=== PATIENT | female | born 1975 | race Caucasian/White ===

== ENCOUNTER 2016-09-13 23:17 | Emergency (ER) | payer OTHER ==
[~2016-09-13] VITALS: Ht 175.3 cm; Wt 68.0 kg
[~2016-09-13 23:17] MED LIST: METO10TA PO; OXYC-360 PO; SULF-154 PO; Z.0.NO CURRENT MEDS
[2016-09-13 23:18] VITALS: BP 121/78; PULSE 69; RESP 14; TEMP 97.6; O2SAT 97
[2016-09-13] MEDS ORDERED: PROG100C PO (23:37)
--- NOTE | 2016-09-13 23:44 | PD ---
HPI Chief Complaint: Headache Time Seen by Provider: 23:38 Travel History International Travel<30 days: No Contact w/Intl Traveler<30days: No Traveled to known affect area: No History of Present Illness HPI 41-year-old white female presents to emergency department with complaints of headache. She states that for nearly a week now she's been having waxing and waning left temporal and behind eye pain. She states that she does not typically get headaches that last more than a day. She states that she's never had a CAT scan of her brain. She has not been ill recently. She has had no family history of headaches. She states that this headache came on gradually. She states it is sharp and stabbing. She has some tingling in her left cheek. Some associated nausea but no vomiting. No photophobia or phonophobia. She has had some temporary relief with [id number] NSAIDs. There is no aggravating activity. No family history of migraines. She denies any hypertension or diabetes. No active tissue disorders. 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 PENDING SALE TO [facility] Past Medical History Medical History: Denies Significant Hx Tetanus Vaccination: < 5 Years ?: Not LMP: yesterday Ectopic : Yes Past Surgical History Narrative Surgical Removal of an ovary Social History Alcohol Use: No Tobacco Use: No Substance Use: No Allergies-Medications (Allergen,Severity, Reaction): Coded Allergies: No Known Allergies (Verified , 09/13/16) Reported Meds & Prescriptions Reported Meds & Active Scripts Active Reported Progesterone Micronized 100 Mg Cap 100 Mg PO DAILY Review of Systems Except as stated in HPI: all other systems reviewed are Neg General / Constitutional: No: Fever, Chills Eyes: No: Diploplia, Blurred Vision, Photophobia, Drainage, Visual changes HENT: No: Headaches, Neck Stiffness, Neck Pain Cardiovascular: No: Chest Pain or Discomfort, Palpitations Respiratory: No: Cough, Shortness of Breath Gastrointestinal: Positive: Nausea, No: Vomiting Genitourinary: No: Dysuria, Hematuria Musculoskeletal: No: Myalgias, Arthralgias Skin: No Rash, No Itching Neurologic: Positive: Headache, No: Weakness, Dizziness, Syncope, Focal Abnormalities, Coordination Problem, Change in Mentation, Slurred Speech, Paresthesia, Sensory Disturbance Physical Exam Narrative GENERAL: Well-developed, well-nourished in no apparent distress. Nontoxic appearing. HEAD: Normocephalic, atraumatic. No pain on percussion. EYES: Pupils equal round and reactive. Extraocular motions intact. No scleral icterus. No injection or drainage. ENT: Nose clear. Throat without erythema, tonsillar hypertrophy or exudate. Uvula midline. Airway patent. NECK: Trachea midline. Supple, nontender, moves head freely. No central bony tenderness or spasm. CARDIOVASCULAR: Regular rate and rhythm without murmurs, gallops, or rubs. RESPIRATORY: Clear to auscultation. Breath sounds equal bilaterally. No wheezes , rales, or rhonchi. GASTROINTESTINAL: Abdomen soft, non-tender, nondistended. No hepato-splenomegaly , or palpable masses. No guarding. EXTREMITIES: No clubbing, cyanosis, or edema. No joint tenderness. BACK: Nontender without deformity. No flank tenderness. NEUROLOGICAL: Awake, alert and oriented x 3 .Cranial nerves grossly intact. Motor and sensory grossly within normal limits. Normal speech. Normal gait. Normal tandem gait. Normal finger to nose. Negative station and Romberg. Deep tendon reflexes are 3+ bilaterally. Data Data Last Documented VS Vital Signs Date Time Temp Pulse Resp B/P Pulse Ox O2 Delivery O2 Flow Rate FiO2 09/13/16 23:34 16 Room Air 09/13/16 23:18 97.6 69 121/[address] Brain W/O Iv Contrast(Rout) (09/13/16 23:36) Diphenhydramine Inj (Benadryl Inj) (09/13/16 23:45) Prochlorperazine Inj (Compazine Inj) (09/13/16 23:45) Ketorolac Inj (Toradol Inj) (09/13/16 23:45) Sodium Chlor 0.9% 1000 Ml Inj (Ns 1000 M (09/13/16 23:45) MDM Medical Decision Making Medical Screen Exam Complete: Yes Emergency Medical Condition: Yes Medical Record Reviewed: Yes Interpretation(s) CT brain: Unremarkable Differential Diagnosis MDM: High Differential diagnoses: Subarachnoid hemorrhage, intracranial bleed, aneurysm, pseudotumor, migraine, cluster headache, atypical migraine, temporal arteritis, connective tissue disorder, hypertension, temporal arteritis, sinusitis, sinus headache,malingering Narrative Course IV access is obtained. Patient's given 50 mg as of Benadryl, Compazine 10 mg, and Toradol 30 mg IV. Normal saline liter bolus CT of the brain has been ordered. The patient's headache is much improved. Her CAT scan is negative. This is cephalgia Diagnosis Primary Impression: Cephalgia Patient Instructions: General Instructions Additional Instructions: Rest. Increase fluids. Follow-up with your doctor on Friday. Return to the ER for problems. Disposition: DISCHARGE HOME Condition: Stable Margarito Cunningham Sep 13, 2016 23:44
[2016-09-13] MEDS ORDERED: KETOROLAC TROMETHAMINE 30 MG/ML (IVP) VIAL IV PUSH ONE (23:45)
[2016-09-13] MEDS ORDERED: SODIUM CHLOR 0.9% 1000 ML INJ 1,000 ML IV ONE (23:45)
[2016-09-13] MEDS ORDERED: PROCHLORPERAZINE INJ 10 MG/2 ML VIAL IVS ONE (23:45)
[2016-09-13] MEDS ORDERED: diphenhydrAMINE HCL 50 MG/ML VIAL IV PUSH ONE (23:45)
--- NOTE | 2016-09-14 01:07 | RADRPT ---
EXAM DATE/TIME: 09/14/2016 00:19 [facility] COMPARISON: No previous studies available for comparison. INDICATIONS : Headache. RADIATION DOSE: 56.35 CTDIvol (mGy) MEDICAL HISTORY : None SURGICAL HISTORY : Ectopic ENCOUNTER: Initial ACUITY: 1 day PAIN SCALE: 6/10 LOCATION: cranial TECHNIQUE: Multiple contiguous axial images were obtained of the head. Using automated exposure control and adj ustment of the mA and/or kV according to patient size, radiation dose was kept as low as reasonably a chievable to obtain optimal diagnostic quality images. FINDINGS: CEREBRUM: The ventricles are normal for age. No evidence of midline shift, mass lesion, hemorrhage or acute in farction. No extra-axial fluid collections are seen. POSTERIOR FOSSA: The cerebellum and brainstem are intact. The 4th ventricle is midline. The cerebellopontine angle i s unremarkable. EXTRACRANIAL: The visualized portion of the orbits is intact. SKULL: The calvaria is intact. No evidence of skull fracture. CONCLUSION: Negative noncontrast head CT. No abnormality is identified to explain the patient's headaches. Brian Navarro MD on September 14, 2016 at 1:04 Board Certified Radiologist. This report was verified electronically.
== END 2016-09-14 01:44 | disposition home or self-care (01) ==
LOC: NEPB 23:17
DX: R51 Headache (principal); R20.2 Paresthesia of skin; R11.0 Nausea
CPT/HCPCS: 70450; 96374; 96375; 99284; J0780; J1200; J1885; J7030

== ENCOUNTER → 2017-02-04 | Outpatient (CLI) | payer OTHER ==
[~2017-02-04] MED LIST changes: -METO10TA PO; -OXYC-360 PO; +PROG100C PO; -SULF-154 PO; -Z.0.NO CURRENT MEDS
[2017-02-04 08:10] LABS: AUTOMATED NEUTROPHIL # 2.7 TH/MM3 (1.8-7.7); BASOPHIL % 0.7 % (0.0-2.0); EOSINOPHIL # 0.1 TH/MM3 (0-0.4); EOSINOPHIL % 2.1 % (0.0-4.0); HEMO FLAGS DIFF FINAL; LYMPH % 36.1 % (9.0-44.0); LYMPHOCYTE # 1.9 TH/MM3 (1.0-4.8); MEAN CELL VOLUME 85.8 FL (80.0-100.0); MEAN CORPUSCULAR HGB CONC 33.7 % (32.0-36.0); MONO % 10.5 % (0.0-8.0); NEUT % 50.6 % (16.0-70.0); PLATELET COUNT 160 TH/MM3 (150-450); WHITE BLOOD COUNT 5.3 TH/MM3 (4.0-11.0)
[2017-02-04 08:37] LABS: ANION GAP 6 MEQ/L (5-15); AST (GOT) 15 U/L (15-37); BLOOD UREA NITROGEN 17 MG/DL (7-18); CHLORIDE 104 MEQ/L (98-107); GLOMERULAR FILTRATION RATE 63 ML/MIN (>89); GLUCOSE,FASTING 73 MG/DL (74-99); POTASSIUM 3.7 MEQ/L (3.5-5.1); SODIUM (NA) 139 MEQ/L (136-145)
[2017-02-04 08:48] LABS: ALKALINE PHOSPHATASE 65 U/L (45-117); ALT (GPT) 31 U/L (10-53); FREE T4 0.93 NG/DL (0.76-1.46); TOTAL BILIRUBIN ADULT 0.3 MG/DL (0.2-1.0)
[2017-02-06 14:52] LABS: BIOAVAILABLE TESTOSTERONE 26 ng/dL (()); ESTRADIOL 29 pg/mL (()); ESTRIOL 0.34 ng/mL (<0.08)
[2017-02-06 23:53] LABS: SEX HORMONE BINDING GLOBULIN 69 nmol/L (17-124)
[2017-02-07 19:52] LABS: PROGESTERONE LESS THAN 0.1 ng/mL (())
== END ==
LOC: CLAB 07:38
DX: R53.83 Other fatigue (principal); R63.5 Abnormal weight gain; R68.82 Decreased libido; E55.9 Vitamin D deficiency, unspecified; E03.4 Atrophy of thyroid (acquired)
CPT/HCPCS: 36415; 80053; 82626; 82670; 82677; 84144; 84270; 84402; 84403; 84439; 84443; 84481; 85025

== ENCOUNTER → 2017-05-09 | Outpatient (CLI) | payer OTHER ==
[2017-05-09 12:45] LABS: AUTOMATED NEUTROPHIL # 3.6 TH/MM3 (1.8-7.7); BASOPHIL % 0.5 % (0.0-2.0); EOSINOPHIL # 0.2 TH/MM3 (0-0.4); EOSINOPHIL % 2.8 % (0.0-4.0); HEMATOCRIT 44.5 % (35.0-46.0); HEMO FLAGS DIFF FINAL; LYMPH % 32.5 % (9.0-44.0); LYMPHOCYTE # 2.1 TH/MM3 (1.0-4.8); MEAN CELL VOLUME 87.6 FL (80.0-100.0); MEAN CORPUSCULAR HEMOGLOBIN 29.5 PG (27.0-34.0); MEAN CORPUSCULAR HGB CONC 33.7 % (32.0-36.0); MONO % 7.6 % (0.0-8.0); NEUT % 56.6 % (16.0-70.0); PLATELET COUNT 178 TH/MM3 (150-450); RED BLOOD COUNT 5.08 MIL/MM3 (4.00-5.30); RED CELL DISTRIBUTION WIDTH 14.6 % (11.6-17.2); WHITE BLOOD COUNT 6.3 TH/MM3 (4.0-11.0)
[2017-05-09 13:14] LABS: ANION GAP 5 MEQ/L (5-15); AST (GOT) 22 U/L (15-37); BICARBONATE 27.7 MEQ/L (21.0-32.0); BLOOD UREA NITROGEN 19 MG/DL (7-18); CHLORIDE 103 MEQ/L (98-107); GLOMERULAR FILTRATION RATE 59 ML/MIN (>89); GLUCOSE,FASTING 87 MG/DL (74-99); POTASSIUM 3.9 MEQ/L (3.5-5.1); SODIUM (NA) 136 MEQ/L (136-145)
[2017-05-09 13:24] LABS: ALKALINE PHOSPHATASE 80 U/L (45-117); ALT (GPT) 45 U/L (10-53); FREE T3 3.41 PG/ML (2.18-3.98); FREE T4 0.72 NG/DL (0.76-1.46); TOTAL BILIRUBIN ADULT 0.2 MG/DL (0.2-1.0)
[2017-05-12 17:50] LABS: SEX HORMONE BINDING GLOBULIN 79 nmol/L (17-124)
[2017-05-13 09:53] LABS: BIOAVAILABLE TESTOSTERONE 2.7 ng/dL; ESTRADIOL <10 pg/mL; ESTRIOL <0.07 ng/mL (<0.08)
[2017-05-13 13:52] LABS: PROGESTERONE 0.1 ng/mL
== END ==
LOC: CLAB 12:08
DX: E03.4 Atrophy of thyroid (acquired) (principal); N95.1 Menopausal and female climacteric states; R68.82 Decreased libido; R53.83 Other fatigue
CPT/HCPCS: 36415; 80053; 82670; 82677; 84144; 84270; 84403; 84410; 84439; 84443; 84481; 85025

== ENCOUNTER → 2017-08-01 | Outpatient (CLI) | payer OTHER ==
[2017-08-01 08:18] LABS: AUTOMATED NEUTROPHIL # 2.5 TH/MM3 (1.8-7.7); BASOPHIL % 0.6 % (0.0-2.0); EOSINOPHIL # 0.1 TH/MM3 (0-0.4); EOSINOPHIL % 1.9 % (0.0-4.0); HEMATOCRIT 38.2 % (35.0-46.0); HEMO FLAGS DIFF FINAL; LYMPH % 39.2 % (9.0-44.0); MEAN CELL VOLUME 88.5 FL (80.0-100.0); MEAN CORPUSCULAR HEMOGLOBIN 30.6 PG (27.0-34.0); MEAN CORPUSCULAR HGB CONC 34.6 % (32.0-36.0); NEUT % 48.3 % (16.0-70.0); PLATELET COUNT 198 TH/MM3 (150-450); RED BLOOD COUNT 4.32 MIL/MM3 (4.00-5.30); RED CELL DISTRIBUTION WIDTH 13.6 % (11.6-17.2); WHITE BLOOD COUNT 5.2 TH/MM3 (4.0-11.0)
[2017-08-01 08:46] LABS: ALT (GPT) 40 U/L (10-53)
[2017-08-01 08:48] LABS: ANION GAP 9 MEQ/L (5-15); AST (GOT) 24 U/L (15-37); BICARBONATE 23.4 MEQ/L (21.0-32.0); BLOOD UREA NITROGEN 16 MG/DL (7-18); CHLORIDE 108 MEQ/L (98-107); GLOMERULAR FILTRATION RATE 78 ML/MIN (>89); GLUCOSE,FASTING 90 MG/DL (74-99); POTASSIUM 4.3 MEQ/L (3.5-5.1); SODIUM (NA) 140 MEQ/L (136-145)
[2017-08-01 08:56] LABS: ALKALINE PHOSPHATASE 85 U/L (45-117); FREE T3 4.25 PG/ML (2.18-3.98); FREE T4 0.77 NG/DL (0.76-1.46); TOTAL BILIRUBIN ADULT LESS THAN 0.1 MG/DL (0.2-1.0)
[2017-08-03 17:51] LABS: PROGESTERONE 0.2 ng/mL
[2017-08-07 16:51] LABS: ESTRIOL 0.31 ng/mL (<0.08)
== END ==
LOC: CLAB 07:22
DX: E03.4 Atrophy of thyroid (acquired) (principal); R53.83 Other fatigue
CPT/HCPCS: 36415; 80053; 82533; 82626; 82670; 82677; 84144; 84270; 84403; 84410; 84439; 84443; 84481; 85025